=== PATIENT | female | born 1960 | race Caucasian/White ===

== ENCOUNTER 2017-10-21 09:17 | Day surgery (SDC) | payer BC ==
[2017-10-17 13:03] VITALS: BMI 37.4
[~2017-10-21 09:17] MED LIST: LACTATED RINGERS 1,000 ML IV SCH
[2017-10-21 09:57] VITALS: RESP 16; TEMP 97.8
[2017-10-21] MEDS ORDERED: LIDOCAINE 1% 20 ML VIAL (10MG/ML) FOR IV START INTRADERMA ONE (10:03)
[2017-10-21] MEDS ORDERED: PROPOFOL 10 MG/ML 20 ML VIAL IV ONE (10:04)
--- NOTE | 2017-10-21 10:46 | P.PCN ---
Date of Procedure: 10/21/17 Procedure(s) Performed: Procedure: Total colonoscopy. Preoperative diagnosis: Positive cologuard test. Postoperative diagnosis: Mild sigmoid diverticulosis with no evidence of acute diverticulitis, strictures, polyps or cancer. Preparation: HalfLytely prep. Sedation: Was provided by anesthesia. Brief clinical history: The patient is a 57-year-old female who is referred for this evaluation because of positive cologuard test. She has no abdominal complaints, bleeding or anemia. This would be her first colonoscopy. Procedure: With the patient on her left lateral decubitus position and after informed consent and adequate sedation, the perianal area was inspected and it did not show any fissures or fistulas. There were no masses felt on digital rectal examination. The Olympus CFQ 160L video colonoscope was then inserted in the rectum in the usual fashion and advanced to the cecum. There were few small diverticular orifices seen scattered in the sigmoid but I saw no evidence of acute diverticulitis or strictures. No polyps or tumors were seen. The mucosa appeared healthy. The patient tolerated the procedure well. Plan: The patient was reassured. In the absence of upper GI complaints or anemia, I did not recommend upper GI workup for the workup of her positive cologuard test and this can be kept as a contingency based on her course. She will follow-up with you as planned. For screening for colon cancer, I am recommending repeat colon exam in 10 years.
[2017-10-21 11:24] VITALS: BP 129/78; PULSE 63
== END 2017-10-21 11:27 | disposition home or self-care (01) ==
LOC: ORWHC2ENDO 09:17
DX: K57.30 Diverticulosis of large intestine without perforation or abscess without bleeding (principal); I10 Essential (primary) hypertension; Z87.891 Personal history of nicotine dependence; Z79.899 Other long term (current) drug therapy; Z88.6 Allergy status to analgesic agent; Z91.09 Other allergy status, other than to drugs and biological substances; Z91.040 Latex allergy status
CPT/HCPCS: 45378; J2704

== ENCOUNTER → 2018-02-13 | Outpatient (CLI) | payer BC ==
--- NOTE | 2018-02-13 11:09 | MM ---
Reason for exam: screening (asymptomatic). Last mammogram was performed 2 years and 3 months ago. History: Patient is postmenopausal. Family history of breast cancer in mother at age 70 and premenopausal breast cancer in maternal grandmother at age 36. Benign right US cyst aspiration ea add of the right breast, July 30, 2006. Benign right US cyst aspiration ea add of the right breast, July 30, 2006. Benign left US cyst aspiration of the left breast, July 30, 2006. Benign right US cyst aspiration of the right breast, July 30, 2006. Cyst aspiration of the left breast, April 07, 2004. Benign cyst aspiration of the right breast, April 07, 2004. Benign ultrasound-guided cyst aspiration of the left breast, April 07, 2004. Took hormonal contraceptives for 5 years beginning at age 24. Physical Findings: A clinical breast exam by your physician is recommended on an annual basis and results should be correlated with mammographic findings. MG Screening Mammo w CAD Bilateral CC and MLO view(s) were taken. Prior study comparison: November 17, 2015, bilateral MG screening mammo w CAD. August 16, 2010, bilateral digital screening mammo w/CAD. The breast tissue is heterogeneously dense. This may lower the sensitivity of mammography. Finding: There are new round, grouped/clustered calcifications in the upper outer quadrant, middle position of the left breast 9cm from the nipple. There are several bilateral rounded densities, changing. New finding since November 17, 2015 and August 16, 2010. ASSESSMENT: Incomplete: need additional imaging evaluation, BI-RAD 0 RECOMMENDATION: Ultrasound of both breasts. [facility] will attempt to contact patient to return for ultrasound.
== END | disposition home or self-care (01) ==
LOC: RADMAMWWP 07:14
PROVIDERS: ATTEND Family Medicine
DX: Z12.31 Encounter for screening mammogram for malignant neoplasm of breast (principal)
CPT/HCPCS: 77067

== ENCOUNTER → 2018-02-20 | Outpatient (CLI) | payer BC ==
--- NOTE | 2018-02-20 14:23 | USB ---
Reason for exam: additional evaluation requested from abnormal screening. History: Patient is postmenopausal. Family history of breast cancer in mother at age 70 and premenopausal breast cancer in maternal grandmother at age 36. Benign right US cyst aspiration ea add of the right breast, July 30, 2006. Benign right US cyst aspiration ea add of the right breast, July 30, 2006. Benign left US cyst aspiration of the left breast, July 30, 2006. Benign right US cyst aspiration of the right breast, July 30, 2006. Cyst aspiration of the left breast, April 07, 2004. Benign cyst aspiration of the right breast, April 07, 2004. Benign ultrasound-guided cyst aspiration of the left breast, April 07, 2004. Took hormonal contraceptives for 5 years beginning at age 24. Physical Findings: Nurse did not find any significant physical abnormalities on exam. US Breast Workup MIHAI Right complete breast ultrasound includes all four quadrants, the retroareolar region and axilla. Finding demonstrates a 0.8 x 0.5 x 1.0cm oval, hypoechoic probable cyst at 6 o'clock, a 0.8 x 0.9 x 0.7cm oval, cystic lesion at 7 o'clock, a 1.4 x 0.9 x 1.0cm oval, cystic lesion at 8 o'clock, a 1.4 x 1.7cm oval cystic lesion at the posterior nipple and a 0.8 x 0.7cm oval, cystic lesion at the posterior nipple Left complete breast ultrasound includes all four quadrants, the retroareolar region and axilla. Finding demonstrates a 1.5 x 0.9 x 1.4cm oval, cystic lesion at 12 o'clock, a 2.2 x 1.0 x 2.3cm oval, cystic lesion at 1 o'clock and a 1.9 x 1.0 x 1.7cm cystic lesion at 8 o'clock. These results were verbally communicated with the patient and result sheet given to the patient on 02/20/18. ASSESSMENT: Benign, BI-RAD 2 RECOMMENDATION: Return to routine screening mammogram schedule for both breasts.
--- NOTE | 2018-02-20 14:25 | MM ---
Reason for exam: additional evaluation requested from abnormal screening. Last mammogram was performed less than 1 month ago. History: Patient is postmenopausal. Family history of breast cancer in mother at age 70 and premenopausal breast cancer in maternal grandmother at age 36. Benign right US cyst aspiration ea add of the right breast, July 30, 2006. Benign right US cyst aspiration ea add of the right breast, July 30, 2006. Benign left US cyst aspiration of the left breast, July 30, 2006. Benign right US cyst aspiration of the right breast, July 30, 2006. Cyst aspiration of the left breast, April 07, 2004. Benign cyst aspiration of the right breast, April 07, 2004. Benign ultrasound-guided cyst aspiration of the left breast, April 07, 2004. Took hormonal contraceptives for 5 years beginning at age 24. Physical Findings: Nurse did not find any significant physical abnormalities on exam. MG Work Up Mamm w CAD LT CC with magnification, LM with magnification, and LM view(s) were taken of the left breast. Prior study comparison: February 13, 2018, bilateral MG screening mammo w CAD. November 17, 2015, bilateral MG screening mammo w CAD. There are layering calcifications in the left breast. These results were verbally communicated with the patient and result sheet given to the patient on 02/20/18. ASSESSMENT: Incomplete: need additional imaging evaluation, BI-RAD 0 RECOMMENDATION: Ultrasound of both breasts.
== END | disposition home or self-care (01) ==
LOC: RADUSWWP 12:55
PROVIDERS: ATTEND Family Medicine
DX: R92.8 Other abnormal and inconclusive findings on diagnostic imaging of breast (principal)
CPT/HCPCS: 77065

== ENCOUNTER → 2019-02-06 | Outpatient (CLI) | payer BC ==
--- NOTE | 2019-02-06 14:06 | US ---
EXAMINATION TYPE: US extremity nonvasc mass RT DATE OF EXAM: 02/06/2019 COMPARISON: NONE CLINICAL HISTORY: R22.41 SWELLING, MASS RT LOWER LIMB. lump right lower leg near ankle x 9 months TECHNIQUE/FINDINGS: Grayscale ultrasound imaging was performed in the area of concern over the patien t's right lower extremity. Diffuse mild subcutaneous edema. Scanned within area of concern, right med ial lower leg near ankle, unable to identify any fluid collection or abnormality by ultrasound at thi s time IMPRESSION: Diffuse mild subcutaneous edema. No solid or cystic mass in the area of concern.
== END ==
LOC: RADUSWWP 13:17
PROVIDERS: ATTEND Family Medicine
DX: R60.0 Localized edema (principal)

== ENCOUNTER → 2020-07-22 | Outpatient (CLI) | payer BC ==
--- NOTE | 2020-07-25 11:07 | MM ---
Reason for exam: screening (asymptomatic). Last mammogram was performed 2 years and 5 months ago. History: Patient is postmenopausal. Family history of breast cancer in mother at age 70 and premenopausal breast cancer in maternal grandmother at age 36. Benign right US cyst aspiration ea add of the right breast, July 30, 2006. Benign right US cyst aspiration ea add of the right breast, July 30, 2006. Benign left US cyst aspiration of the left breast, July 30, 2006. Benign right US cyst aspiration of the right breast, July 30, 2006. Cyst aspiration of the left breast, April 07, 2004. Benign cyst aspiration of the right breast, April 07, 2004. Benign ultrasound-guided cyst aspiration of the left breast, April 07, 2004. Took hormonal contraceptives for 5 years beginning at age 24. Physical Findings: A clinical breast exam by your physician is recommended on an annual basis and results should be correlated with mammographic findings. MG 3D Screening Mammo W/Cad Bilateral CC and MLO view(s) were taken. Prior study comparison: February 20, 2018, left breast MG work up mamm w CAD LT. February 13, 2018, bilateral MG screening mammo w CAD. The breast tissue is heterogeneously dense. This may lower the sensitivity of mammography. There are benign appearing round dystropchic calcifications bilaterally. There is chronic nodularity bilaterally. There is no dominant lesion. ASSESSMENT: Benign, BI-RAD 2 RECOMMENDATION: Routine screening mammogram of both breasts in 1 year.
== END | disposition home or self-care (01) ==
LOC: RADMAMWWP 08:39
PROVIDERS: ATTEND Family Medicine
DX: Z12.31 Encounter for screening mammogram for malignant neoplasm of breast (principal); Z78.0 Asymptomatic menopausal state; Z80.3 Family history of malignant neoplasm of breast
CPT/HCPCS: 77063; 77067

== ENCOUNTER → 2021-06-02 | Outpatient (CLI) | payer BC ==
--- NOTE | 2021-06-02 12:35 | US ---
EXAMINATION TYPE: US pelvis complete transvag DATE OF EXAM: 06/02/2021 COMPARISON: NONE CLINICAL HISTORY: R10.31 RLQ pain. right pelvic pain TECHNIQUE: Transvaginal (TV) and Transabdominal (TA) . Transabdominal sonographic images of the pel vis were acquired. Transvaginal sonographic images were medically necessary to better assess the fol lowing anatomy: uterus and ovaries Date of LMP: unknown EXAM MEASUREMENTS: Uterus: 7.0 x 3.1 x 3.8 cm Endometrial Stripe: 0.3 cm Right Ovary: Obscured by overlying bowel gas Left Ovary: Obscured by overlying bowel gas 1. Uterus: Anteverted heterogeneous. multiple nonshadowing echogenic foci noted may be calcificati ons. fibroid anterior fundus = 1.0cm 2. Endometrium: appears wnl 3. Right Ovary: Obscured by overlying bowel gas 4. Left Ovary: Obscured by overlying bowel gas 5. Bilateral Adnexa: prominent vascularity left adnexa 6. Posterior cul-de-sac: appears wnl Urinary bladder is sonolucent. The posterior wall is normal. IMPRESSION: 1. Uterine fibroid. 2. Ovaries not identified due to bowel gas.
== END | disposition home or self-care (01) ==
LOC: RADUSWWP 10:51
PROVIDERS: ATTEND Family Medicine
DX: D25.9 Leiomyoma of uterus, unspecified (principal)
CPT/HCPCS: 76830; 76856

== ENCOUNTER 2023-01-24 20:28 | Emergency (ER) | payer BC ==
[2023-01-24 21:06] VITALS: TEMP 97.9
--- NOTE | 2023-01-24 21:23 | ED ---
Abdominal Pain HPI - General Chief Complaint: GI Bleed Stated Complaint: Abd pain, vomiting, rectal bleeding Time Seen by Provider: 01/24/23 21:09 Source: patient Mode of arrival: ambulatory Limitations: no limitations - History of Present Illness Initial Comments: This patient is 63-year-old woman who presents to evaluation of abdominal pain. She states that it started last night around 7 PM the feeling of being very full after eating. She states that around 11 she was having diffuse abdominal cramping. Shortly after that she had some nausea. She then developed vomiting and diarrhea. She had a total of about 3 episodes of vomiting, no coffee ground or bloody emesis. She had a number of bowel movements, and then in the morning noted that she started having bright red blood that she was passing when she would try to have a bowel movement. There were no clots or blood in the stool. She states that the pain now has settled in the bilateral lower quadrants and is crampy. No worsening or relieving factors. MD Complaint: abdominal pain -: hour(s) Location: periumbilical Radiation: none Migration to: LLQ, RLQ Severity: moderate Quality: cramping Consistency: constant Improves With: nothing Worsens With: nothing Associated Symptoms: nausea, vomiting, diarrhea, hematochezia - Related Data Home Medications Medication Instructions Recorded Confirmed Desvenlafaxine Succinate [Pristiq] 50 mg PO DAILY 10/17/17 10/21/17 atenoloL 25 mg PO DAILY 10/17/17 10/21/17 Previous Rx's Medication Instructions Recorded Amoxic-Pot Clav 875-125Mg 1 tab PO BID 1 Days #14 tab 01/25/23 [Augmentin 875-125] Allergies Allergy/AdvReac Type Severity Reaction Status Date / Time Latex, Natural Rubber Allergy BLISTERS Verified 01/24/23 20:39 nickel Allergy BLISTERS Verified 01/24/23 20:39 ibuprofen [From Motrin] AdvReac AGITATION Verified 01/24/23 20:39 Review of Systems ROS Statement: Those systems with pertinent positive or pertinent negative responses have been documented in the HPI. ROS Other: All systems not noted in ROS Statement are negative. Constitutional: Denies: fever, chills Respiratory: Denies: cough, dyspnea Cardiovascular: Denies: chest pain, palpitations, edema Gastrointestinal: Reports: abdominal pain, nausea, vomiting, diarrhea, hematochezia Genitourinary: Denies: dysuria, hematuria Musculoskeletal: Denies: back pain Skin: Denies: rash Neurological: Denies: headache, weakness, numbness Hematological/Lymphatic: Denies: easy bleeding Past Medical History Past Medical History: Hypertension Additional Past Medical History / Comment(s): POSITIVE COLOGARD TEST History of Any Multi-Drug Resistant Organisms: None Reported Additional Past Surgical History / Comment(s): REMOVAL OF OVARAIN CYST Past Anesthesia/Blood Transfusion Reactions: No Reported Reaction Past Psychological History: Anxiety, Depression Smoking Status: Former smoker Past Alcohol Use History: None Reported Past Drug Use History: None Reported - Past Family History Father Family Medical History: Cancer Mother Family Medical History: Cancer General Exam Limitations: no limitations General appearance: alert, in no apparent distress Head exam: Present: atraumatic, normocephalic Eye exam: Present: normal appearance. Absent: scleral icterus, conjunctival injection ENT exam: Present: normal oropharynx Neck exam: Present: normal inspection Respiratory exam: Present: normal lung sounds bilaterally. Absent: respiratory distress, wheezes, rales, rhonchi, stridor Cardiovascular Exam: Present: regular rate, normal rhythm, normal heart sounds. Absent: systolic murmur, diastolic murmur, rubs, gallop GI/Abdominal exam: Present: soft. Absent: distended, tenderness, guarding, rebound, rigid, mass Rectal exam: Present: normal inspection, normal rectal tone. Absent: hemorrhoi ds, mass, tenderness Extremities exam: Present: normal inspection, normal capillary refill. Absent: pedal edema, calf tenderness Back exam: Present: normal inspection. Absent: CVA tenderness (R), CVA tenderness (L) Neurological exam: Present: alert Skin exam: Present: warm, dry, intact, normal color. Absent: rash Course Vital Signs 01/24/23 01/24/23 01/25/23 20:39 23:00 00:35 Temperature 97.9 F Pulse Rate 89 71 75 Respiratory 18 14 Rate Blood Pressure 143/79 133/77 133/73 O2 Sat by Pulse 95 96 97 Oximetry 01/25/23 01:33 Temperature Pulse Rate 74 Respiratory 16 Rate Blood Pressure 118/70 O2 Sat by Pulse 97 Oximetry Medical Decision Making - Medical Decision Making The patient had CT of the abdomen and pelvis which interpreted to show some nonspecific colitis. No evidence of free air or obstruction. Was pt. sent in by a medical professional or institution (, KARENA, UNIVERSAL WINDING MACHINE OPERATOR, urgent care, hospital, or senior living...) When possible be specific @ -[No] Did you speak to anyone other than the patient for history (EMS, parent, family, police, friend...)? What history was obtained from this source @ -[No] Did you review nursing and triage notes (agree or disagree)? Why? @ -[I reviewed and agree with nursing and triage notes] Were old charts reviewed (outside hosp., previous admission, EMS record, old E KG, old radiological studies, urgent care reports/EKG's, senior living records)? Report findings @ -[No old charts were reviewed] Differential Diagnosis (chest pain, altered mental status, abdominal pain women, abdominal pain men, vaginal bleeding, weakness, fever, dyspnea, syncope, headache, dizziness, GI bleed, back pain, seizure, CVA, palpatations, mental h ealth, musculoskeletal)? @ -Differential Abdominal Pain Women: Appendicitis, Cholecystitis, diverticulosis, ischemic bowel, pancreatitis, hepatitis, UTI, gastroenteritis, AAA, incarcerated hernia, bowel obstruction, constipation, inflammatory bowel, hepatitis, peptic ulcer disease, splenic infarction, perforated viscus, vulvitis, ovarian torsion, PID, kidney stone, placenta abruption, this is not meant to be an all-inclusive list EKG interpreted by me (3pts min.). @ -[As above] X-rays interpreted by me (1pt min.). @ -[None done] CT interpreted by me (1pt min.). @ -[Interpreted as above U/S interpreted by me (1pt. min.). @ -[None done] What testing was considered but not performed or refused? (CT, X-rays, U/S, labs)? Why? @ -[None] What meds were considered but not given or refused? Why? @ -[None] Did you discuss the management of the patient with other professionals (professionals i.e. KARENA Lemos, UNIVERSAL WINDING MACHINE OPERATOR, lab, RT, psych nurse, social security specialist, weight engineer, teacher, search and rescue officer, bilingual patient support caseworker)? Give summary @ -[No] Was smoking cessation discussed for >3mins.? @ -[No] Was critical care preformed (if so, how long)? @ -[No] Were there social determinants of health that impacted care today? How? (Homelessness, low income, unemployed, alcoholism, drug addiction, transportation, low edu. Level, literacy, decrease access to med. care, snf, rehab)? @ -[No] Was there de-escalation of care discussed even if they declined (Discuss DNR or withdrawal of care, Hospice)? DNR status @ -[No] What co-morbidities impacted this encounter? (DM, HTN, Smoking, COPD, CAD, Cancer, CVA, ARF, Chemo, Hep., AIDS, mental health diagnosis, sleep apnea, morbi d obesity)? @ -[None] Was patient admitted / discharged? Hospital course, mention meds given and route, prescriptions, significant lab abnormalities, going to OR and other pertinent info. @ -[Patient is 63-year-old woman here to have evaluation for abdominal pain and found on computed tomography scan to have some colitis. We discussed appr opriate further care and follow-up for this as well as return parameters. Undiagnosed new problem with uncertain prognosis? @ -[No] Drug Therapy requiring intensive monitoring for toxicity (Heparin, Nitro, Insulin, Cardizem)? @ -[No] Were any procedures done? @ -[No] Diagnosis/symptom? @ -[Acute colitis Acute, or Chronic, or Acute on Chronic? @ -[default] Uncomplicated (without systemic symptoms) or Complicated (systemic symptoms)? @ -[Uncomplicated Side effects of treatment? @ -[No] Exacerbation, Progression, or Severe Exacerbation? @ -[No] Poses a threat to life or bodily function? How? (Chest pain, [place], [place], pneumonia, PE, COPD, DKA, ARF, appy, cholecystitis, CVA, Diverticulitis, Homicidal, Suicidal, threat to staff... and all critical care pts) @ -[No] - Lab Data Result diagrams: 01/24/23 21:31 01/24/23 21:31 Lab Results 01/24/23 01/24/23 01/24/23 Range/Units 21:30 21:31 21:31 WBC 16.3 H (3.8-10.6) k/uL RBC 4.98 (3.80-5.40) m/uL Hgb 14.7 (11.4-16.0) gm/dL Hct 43.3 (34.0-46.0) % MCV 86.9 (80.0-100.0) fL MCH 29.5 (25.0-35.0) pg MCHC 33.9 (31.0-37.0) g/dL RDW 13.8 (11.5-15.5) % Plt Count 457 H (150-450) k/uL MPV 7.5 Neutrophils % 83 % Lymphocytes % 10 % Monocytes % 5 % Eosinophils % 1 % Basophils % 0 % Neutrophils # 13.5 H (1.3-7.7) k/uL Lymphocytes # 1.6 (1.0-4.8) k/uL Monocytes # 0.8 (0-1.0) k/uL Eosinophils # 0.1 (0-0.7) k/uL Basophils # 0.0 (0-0.2) k/uL PT (10.0-12.5) sec INR (<1.2) APTT (22.0-30.0) sec Sodium (137-145) mmol/L Potassium (3.5-5.1) mmol/L Chloride (98-107) mmol/L Carbon Dioxide (22-30) mmol/L Anion Gap mmol/L BUN (7-17) mg/dL Creatinine (0.52-1.04) mg/dL Est GFR (CKD-EPI)AfAm (>60 ml/min/1.73 sqM) Est GFR (CKD-EPI)NonAf (>60 ml/min/1.73 sqM) Glucose (74-99) mg/dL Plasma Lactic Acid Micheal (0.7-2.0) mmol/L Calcium (8.4-10.2) mg/dL Total Bilirubin (0.2-1.3) mg/dL AST (14-36) U/L ALT (4-34) U/L Alkaline Phosphatase (38-126) U/L Ammonia (<30) umol/L Troponin I (0.000-0.034) ng/mL C-Reactive Protein (<1.0) mg/dL Total Protein (6.3-8.2) g/dL Albumin (3.5-5.0) g/dL Lipase (23-300) U/L Stool Occult Blood Positive H (Negative) Blood Type Blood Type Confirm A Positive Blood Type Recheck Bld Type Recheck Status Antibody Screen Spec Expiration Date 01/24/23 01/24/23 01/24/23 Range/Units 21:31 21:31 21:31 WBC (3.8-10.6) k/uL RBC (3.80-5.40) m/uL Hgb (11.4-16.0) gm/dL Hct (34.0-46.0) % MCV (80.0-100.0) fL MCH (25.0-35.0) pg MCHC (31.0-37.0) g/dL RDW (11.5-15.5) % Plt Count (150-450) k/uL MPV Neutrophils % % Lymphocytes % % Monocytes % % Eosinophils % % Basophils % % Neutrophils # (1.3-7.7) k/uL Lymphocytes # (1.0-4.8) k/uL Monocytes # (0-1.0) k/uL Eosinophils # (0-0.7) k/uL Basophils # (0-0.2) k/uL PT 10.1 (10.0-12.5) sec INR 0.9 (<1.2) APTT 22.7 (22.0-30.0) sec Sodium 132 L (137-145) mmol/L Potassium 4.8 (3.5-5.1) mmol/L Chloride 97 L (98-107) mmol/L Carbon Dioxide 27 (22-30) mmol/L Anion Gap 8 mmol/L BUN 15 (7-17) mg/dL Creatinine 1.00 (0.52-1.04) mg/dL Est GFR (CKD-EPI)AfAm 71 (>60 ml/min/1.73 sqM) Est GFR (CKD-EPI)NonAf 61 (>60 ml/min/1.73 sqM) Glucose 114 H (74-99) mg/dL Plasma Lactic Acid Micheal 1.0 (0.7-2.0) mmol/L Calcium 9.6 (8.4-10.2) mg/dL Total Bilirubin 0.9 (0.2-1.3) mg/dL AST 49 H (14-36) U/L ALT 49 H (4-34) U/L Alkaline Phosphatase 66 (38-126) U/L Ammonia 10 (<30) umol/L Troponin I (0.000-0.034) ng/mL C-Reactive Protein 3.4 H (<1.0) mg/dL Total Protein 7.9 (6.3-8.2) g/dL Albumin 4.4 (3.5-5.0) g/dL Lipase 108 (23-300) U/L Stool Occult Blood (Negative) Blood Type Blood Type Confirm Blood Type Recheck Bld Type Recheck Status Antibody Screen Spec Expiration Date 01/24/23 01/24/23 Range/Units 21:31 21:31 WBC (3.8-10.6) k/uL RBC (3.80-5.40) m/uL Hgb (11.4-16.0) gm/dL Hct (34.0-46.0) % MCV (80.0-100.0) fL MCH (25.0-35.0) pg MCHC (31.0-37.0) g/dL RDW (11.5-15.5) % Plt Count (150-450) k/uL MPV Neutrophils % % Lymphocytes % % Monocytes % % Eosinophils % % Basophils % % Neutrophils # (1.3-7.7) k/uL Lymphocytes # (1.0-4.8) k/uL Monocytes # (0-1.0) k/uL Eosinophils # (0-0.7) k/uL Basophils # (0-0.2) k/uL PT (10.0-12.5) sec INR (<1.2) APTT (22.0-30.0) sec Sodium (137-145) mmol/L Potassium (3.5-5.1) mmol/L Chloride (98-107) mmol/L Carbon Dioxide (22-30) mmol/L Anion Gap mmol/L BUN (7-17) mg/dL Creatinine (0.52-1.04) mg/dL Est GFR (CKD-EPI)AfAm (>60 ml/min/1.73 sqM) Est GFR (CKD-EPI)NonAf (>60 ml/min/1.73 sqM) Glucose (74-99) mg/dL Plasma Lactic Acid Micheal (0.7-2.0) mmol/L Calcium (8.4-10.2) mg/dL Total Bilirubin (0.2-1.3) mg/dL AST (14-36) U/L ALT (4-34) U/L Alkaline Phosphatase (38-126) U/L Ammonia (<30) umol/L Troponin I <0.012 (0.000-0.034) ng/mL C-Reactive Protein (<1.0) mg/dL Total Protein (6.3-8.2) g/dL Albumin (3.5-5.0) g/dL Lipase (23-300) U/L Stool Occult Blood (Negative) Blood Type A Positive Blood Type Confirm Blood Type Recheck No Previous Record Bld Type Recheck Status CABO Indicated Antibody Screen NEGATIVE Spec Expiration Date 01/27/2023 - 2330 Disposition Clinical Impression: Colitis Disposition: HOME SELF-CARE Condition: Good Instructions (If sedation given, give patient instructions): Colitis (ED) Prescriptions: Amoxic-Pot Clav 875-125Mg [Augmentin 875-125] 1 tab PO BID 1 Days #14 tab Is patient prescribed a controlled substance at d/c from ED?: No Referrals: Susan Philippe MD [Primary Care Provider] - 1-2 days
[2023-01-24 21:56] LABS: Basophils % (A) 0 %; Eosinophils # (A) 0.1 k/uL (0-0.7); Eosinophils % (A) 1 %; HCT 43.3 % (34.0-46.0); HGB 14.7 gm/dL (11.4-16.0); Lymphocytes # (A) 1.6 k/uL (1.0-4.8); Lymphocytes % (A) 10 %; MCH 29.5 pg (25.0-35.0); MCHC 33.9 g/dL (31.0-37.0); MCV 86.9 fL (80.0-100.0); Mean Platelet Volume 7.5; Monocytes # (A) 0.8 k/uL (0-1.0); Monocytes % (A) 5 %; Neutrophils # (A) 13.5 k/uL (1.3-7.7); Neutrophils % (A) 83 %; Platelet Count 457 k/uL (150-450); RBC 4.98 m/uL (3.80-5.40); RDW 13.8 % (11.5-15.5); WBC 16.3 k/uL (3.8-10.6)
[2023-01-24] MEDS ORDERED: KETOROLAC 15 MG/ML 1 ML VIAL IVP STA (22:04)
[2023-01-24 22:06] LABS: INR 0.9 (<1.2); Partial Thromboplastin Time 22.7 sec (22.0-30.0); Prothrombin Time 10.1 sec (10.0-12.5)
[2023-01-24 22:11] LABS: ALT 49 U/L (4-34); AST 49 U/L (14-36); African American GFR (CKD) 71 (>60 ml/min/1.73 sqM); Albumin 4.4 g/dL (3.5-5.0); Alkaline Phosphatase 66 U/L (38-126); Anion Gap 8 mmol/L; Blood Urea Nitrogen 15 mg/dL (7-17); C Reactive Protein 3.4 mg/dL (<1.0); Calcium 9.6 mg/dL (8.4-10.2); Carbon Dioxide 27 mmol/L (22-30); Chloride 97 mmol/L (98-107); Glucose 114 mg/dL (74-99); Lipase 108 U/L (23-300); Non-African American GFR(CKD) 61 (>60 ml/min/1.73 sqM); Sodium 132 mmol/L (137-145); Total Bilirubin 0.9 mg/dL (0.2-1.3); Total Protein 7.9 g/dL (6.3-8.2)
[2023-01-24 22:14] LABS: Potassium 4.8 mmol/L (3.5-5.1)
--- NOTE | 2023-01-25 01:07 | CT ---
EXAM: CT Abdomen and Pelvis With Intravenous Contrast CLINICAL HISTORY: lower abdominal pain TECHNIQUE: Axial computed tomography images of the abdomen and pelvis with intravenous contrast. CTDI is 32.4 mGy and DLP is 1577.8 mGy-cm. This CT exam was performed using one or more of the following dose reduction techniques: automated exposure control, adjustment of the mA and/or kV according to patient size, and/or use of iterative reconstruction technique. COMPARISON: No relevant prior studies available. FINDINGS: Lung bases: Unremarkable. No mass. No consolidation. ABDOMEN: Liver: Hepatic steatosis. No focal hepatic lesion. Gallbladder and bile ducts: Unremarkable. No calcified stones. No ductal dilation. Pancreas: Unremarkable. No mass. No ductal dilation. Spleen: Unremarkable. No splenomegaly. Adrenals: Unremarkable. No mass. Kidneys and ureters: Unremarkable. No solid mass. No hydronephrosis. Stomach and bowel: There is mild wall thickening and pericolic edema involving the left colon and proximal sigmoid colon consistent with nonspecific colitis. No obstruction. PELVIS: Appendix: No findings to suggest acute appendicitis. Bladder: Unremarkable. No mass. Reproductive: Unremarkable as visualized. ABDOMEN and PELVIS: Intraperitoneal space: Unremarkable. No free air. No significant fluid collection. Bones/joints: No acute fracture. No dislocation. Soft tissues: Unremarkable. Vasculature: Unremarkable. No abdominal aortic aneurysm. Lymph nodes: Unremarkable. No enlarged lymph nodes. IMPRESSION: Evidence of nonspecific colitis affecting the left colon and proximal sigmoid colon
[2023-01-25] MEDS ORDERED: AMOXIC-POT CLAV 875-125MG 1 EACH TAB PO STA (01:11)
[2023-01-25] MEDS ORDERED: LEVOFLOXACIN 500 MG TAB PO STA (01:18)
[2023-01-25 01:38] VITALS: BP 118/70; PULSE 74; RESP 16
== END 2023-01-25 01:34 | disposition home or self-care (01) ==
LOC: EC 20:28
DX: K52.9 Noninfective gastroenteritis and colitis, unspecified (principal); I10 Essential (primary) hypertension; F41.9 Anxiety disorder, unspecified; F32.A Depression, unspecified; Z79.899 Other long term (current) drug therapy; Z87.891 Personal history of nicotine dependence; Z91.040 Latex allergy status; Z88.6 Allergy status to analgesic agent; Z91.048 Other nonmedicinal substance allergy status
CPT/HCPCS: 36415; 86900; 86901; 80053; 82140; 83605; 83690; 84484; 85025; 85610; 85730; 86850; 86140; 82272; 74177; 99285; 96374; J1885; Q9967

== ENCOUNTER → 2024-01-17 | Outpatient (CLI) | payer BC ==
--- NOTE | 2024-01-17 12:19 | FL ---
EXAMINATION TYPE: FL barium swallow DATE OF EXAM: 01/17/2024 9:11 AM COMPARISON: . Chest radiograph from same day. CLINICAL INDICATION:Female, 64 years old with history of R13.19 DYSPHAGIA; TECHNIQUE: The procedure was explained and patient history elicited. All patient questions were ans wered prior to start of procedure. Multiple spot fluoroscopic images of the esophagus were obtained a fter the oral ingestion of effervescent crystals and liquid barium as the contrast agent. Fluoroscopic time:52 sec Fluoroscopic images: Radiographs taken: 103 DAP: Not reported [id number] FINDINGS: The esophagus demonstrates normal primary and secondary peristalsis. Tertiary contractions with some delayed emptying of esophagus. The esophageal mucosa is smooth without evidence of focal stricture, u lceration, or abnormal outpouching. No gastroesophageal reflux disease was identified IMPRESSION: Esophageal dysmotility [facility], , 01/17/2024 12:17 PM
--- NOTE | 2024-01-17 23:32 | MM ---
Reason for Exam: Screening (asymptomatic). Last mammogram was performed 2 year(s) and 6 month(s) ago. Patient History: Menarche at age 14. First Full-Term at age 31. Postmenopausal. Hormonal Contraceptives for 5 years from age 24 until age 29. 07/30/2006, Benign Cyst Aspiration on the right side. 07/30/2006, Benign Cyst Aspiration on the right side. 07/30/2006, Benign Cyst Aspiration on the left side. 07/30/2006, Benign Cyst Aspiration on the right side. 04/07/2004, Benign Cyst Aspiration on the right side. 04/07/2004, Benign Ultrasound-Guided Cyst Aspiration on the left side. 04/07/2004, Cyst Aspiration on the Left side. Maternal grandmother had breast cancer, age 36. Mother had breast cancer, age 70. Risk Values: Deidra 5 year model risk: 3.0%. NCI Lifetime model risk: 13.2%. Prior Study Comparison: 02/20/2018 Left Diagnostic Mammogram, [facility]. 07/22/2020 Bilateral Screening Mammogram, [facility]. 07/24/2021 Bilateral MG 3D screening mammo w/cad, [facility]. Tissue Density: The breasts are heterogeneously dense, which may obscure small masses. Findings: Analyzed By CAD. The pattern is symmetrical. Pattern appears complex. There is chronic nodularity present within the right breast. There appear to be some chronic nodules within the left breast. However, couple of nodules or not as well visualized previously. This would include a 6 mm nodular density 8 cm nipple inferior aspect medial lateral oblique view and a 9 mm nodular density upper left mediolateral view 8 cm nipple. Additional workup with ultrasound is recommended. Benign calcifications are present bilaterally. Right breast:No suspicious groups of microcalcifications, spiculated or lobular masses, architectural distortion or other secondary signs of malignancy are mammographically apparent. Overall Assessment: Incomplete: need additional imaging evaluation, BI-RAD 0 Management: Diagnostic Breast Ultrasound of the left breast. A negative mammogram report should not preclude additional follow up of suspicious palpable abnormalities. Patient should continue monthly self breast exam. A clinical breast exam by your physician is recommended on an annual basis and results should be correlated with mammographic findings. Note on Deidra scores and lifetime risk: 1. A Deidra score greater than 3% is considered moderate risk. If this is the case, consider specialist referral to assess eligibility for a risk reducing agent. 2. If overall lifetime risk for the development of breast cancer is 20% or higher, the patient may qualify for future screening with alternating mammogram and breast MRI. [facility], , 01/17/2024 11:30 PM. Electronically signed and approved by: Seth Horn D.O. Radiologis
== END | disposition home or self-care (01) ==
LOC: RADBDWWP 07:56
PROVIDERS: ATTEND Family Medicine
DX: Z12.31 Encounter for screening mammogram for malignant neoplasm of breast (principal); Z78.0 Asymptomatic menopausal state; R13.19 Other dysphagia; Z80.3 Family history of malignant neoplasm of breast; R92.333 Mammographic heterogeneous density, bilateral breasts; N63.20 Unspecified lump in the left breast, unspecified quadrant; K22.4 Dyskinesia of esophagus
CPT/HCPCS: 74220; 77063; 77067; 77080

== ENCOUNTER → 2024-01-22 | Outpatient (CLI) | payer BC ==
--- NOTE | 2024-01-23 07:49 | USB ---
Reason for Exam: Additional evaluation requested from abnormal screening. Patient History: Menarche at age 14. First Full-Term at age 31. Postmenopausal. Hormonal Contraceptives for 5 years from age 24 until age 29. 07/30/2006, Benign Cyst Aspiration on the right side. 07/30/2006, Benign Cyst Aspiration on the right side. 07/30/2006, Benign Cyst Aspiration on the left side. 07/30/2006, Benign Cyst Aspiration on the right side. 04/07/2004, Benign Cyst Aspiration on the right side. 04/07/2004, Benign Ultrasound-Guided Cyst Aspiration on the left side. 04/07/2004, Cyst Aspiration on the Left side. Maternal grandmother had breast cancer, age 36. Mother had breast cancer, age 70. Risk Values: Deidra 5 year model risk: 3.0%. NCI Lifetime model risk: 13.2%. Prior Study Comparison: 02/20/2018 Bilateral Diagnostic Ultrasound, [facility]. 07/22/2020 Bilateral Screening Mammogram, [facility]. 07/24/2021 Bilateral MG 3D screening mammo w/cad, [facility]. 01/17/2024 Bilateral MG 3D screening mammo w/cad, [facility]. Findings: The upper outer quadrant of the left breast, the lower inner quadrant of the left breast, the axilla of the left breast and the retroareolar of the left breast were scanned. Simple cyst noted left breast 1:00 position measuring up to 1 cm. No solid lesions detected.. Overall Assessment: Benign, BI-RAD 2 Management: Screening Mammogram of both breasts in 1 year. A clinical breast exam by your physician is recommended on an annual basis and results should be correlated with mammographic findings. This exam should not preclude additional follow-up of suspicious palpable abnormalities. Results were given to the patient verbally at the time of exam. [facility], , 01/23/2024 7:45 AM. Electronically signed and approved by: Fredis Claire M.D. Radiologis
== END | disposition home or self-care (01) ==
LOC: RADUSWWP 13:21
PROVIDERS: ATTEND Family Medicine
DX: R92.8 Other abnormal and inconclusive findings on diagnostic imaging of breast (principal); Z78.0 Asymptomatic menopausal state; Z80.3 Family history of malignant neoplasm of breast